=== PATIENT | male | born 1995 | race Hispanic/Latino ===

== ENCOUNTER 2021-06-21 00:35 | Emergency (ER) | payer OTHER ==
[~2021-06-21] VITALS: Ht 177.8 cm; Wt 102.5 kg
[2021-06-21 02:50] LABS: HEMATOCRIT 45.7 % (42-54); MEAN CORPUSCULAR HEMOGLOBIN 31.7 pg (27.0-33.0); MEAN CORPUSCULAR HGB CONC 35.9 g/dL (32.0-36.0); MEAN CORPUSCULAR VOLUME 88.2 fL (79-99); PLATELET COUNT (AUTO) 273 K/uL (130-400); RED BLOOD CELL COUNT(AUTO) 5.18 MIL/uL (4.50-6.20)
[2021-06-21 02:56] VITALS: BP 136/80
[2021-06-21 02:57] LABS: CREATININE 0.8 mg/dL (0.5-1.5); POTASSIUM 3.7 mmol/L (3.5-5.1)
[2021-06-21 03:02] LABS: BASOPHILS % (AUTO) 0.4 % (0.0-5.0); EOSINOPHILS % (AUTO) 0.5 % (0.0-8.0); LYMPHOCYTES % (AUTO) 26.5 % (21.0-51.0); MONOCYTES % (AUTO) 6.2 % (3.0-13.0); NEUTROPHILS % (AUTO) 66.1 % (40.0-77.0)
[2021-06-21 03:08] LABS: INR 1.2 (0.85-1.15); PROTHROMBIN TIME 12.9 SEC (9.6-11.6)
[2021-06-21 03:10] LABS: PARTIAL THROMBOPLASTIN TIME 35.1 SEC (26.3-35.5)
== END 2021-06-21 03:54 | disposition left against medical advice (07) ==
LOC: EDH 00:35
DX: K62.5 Hemorrhage of anus and rectum (principal); Z53.21 Procedure and treatment not carried out due to patient leaving prior to being seen by health care provider
CPT/HCPCS: 36415; 80048; 85025; 85610; 85730; 86850; 86900; 86901